=== PATIENT | male | born 1970 | race Caucasian/White ===

== ENCOUNTER 2017-01-26 10:54 | Emergency (ER) | payer SELFPAY ==
--- NOTE | ~2017-01-26 | ER ---
PATIENT'S NAME: JOHN DELGADO [facility] AGE: 46 Y [address] ROOM: [place] [address] LOCATION: [facility] ADMIT DATE: 01/26/2017 ER/Outpatient Report DISCHARGE DATE: 01/26/2017 FAMILY PHYSICIAN: PHYSICIAN, NO ATTENDING PHYSICIAN: David Genao TIME OF ARRIVAL: 1054. TIME OF EVALUATION: 1101. CHIEF COMPLAINT: Hernia. HISTORY OF PRESENT ILLNESS: The patient is a 46-year-old male, who presents to the Emergency Department today with a chief complaint of hernia. He reports that he has had a hernia for multiple years. He reports that 1 day prior to arrival, he was lifting couches and furniture for a friend and ever since, he has been having some pain where his hernia is. He is able to push this hernia back in. Denies any fevers or chills. No nausea or vomiting. No diarrhea or constipation. No urinary frequency, urgency, or painful urination. It is a sharp pain, currently mild in severity. PAST MEDICAL HISTORY: Depression and hernia. PAST SURGICAL HISTORY: Bilateral knees x3 total. SOCIAL HISTORY: The patient smoked a pack per day for 34 years. Denies any alcohol or illicit drug use. ALLERGIES: NO KNOWN DRUG ALLERGIES. MEDICATIONS: Risperdal. PRIMARY CARE DOCTOR: In [place]. REVIEW OF SYSTEMS: PATIENT'S NAME: JOHN DELGADO [facility] AGE: 46 Y [address] ROOM: [place] [address] LOCATION: [facility] ADMIT DATE: 01/26/2017 ER/Outpatient Report DISCHARGE DATE: 01/26/2017 FAMILY PHYSICIAN: PHYSICIAN, NO ATTENDING PHYSICIAN: David Genao All systems are reviewed by myself and are negative with the exception of those discussed in HPI and past medical history. PHYSICAL EXAMINATION: VITAL SIGNS: Weight 112 kg, blood pressure 141/101, pulse 83, respiratory rate 20, temperature 97.1, and oxygen saturation 96% on room air. GENERAL: The patient is a 46-year-old male, who appears stated age, in no acute distress at this time. HEENT: Normocephalic, atraumatic. NECK: Supple. There is no nuchal rigidity. CARDIOVASCULAR: Regular rate and rhythm. No murmurs, rubs, or gallops. LUNGS: Diminished diffusely. No wheezes, rales, or rhonchi. ABDOMEN: Soft. He does have a small reducible hernia palpated at the 10 o'clock position of his umbilicus. There is no rebound, rigidity, or guarding. Positive bowel sounds. MUSCULOSKELETAL: The patient moves all 4 extremities. Ambulates with steady gait. SKIN: Warm and dry. No rashes or lesions noted. LABORATORY DATA AND X-RAYS: None. IMPRESSION: 1. Abdominal wall periumbilical reducible hernia. 2. Initial visit. EMERGENCY DEPARTMENT COURSE: The patient brought back to the examination room. Seen and evaluated by myself. History and physical were performed as described above. I have discussed hernia with the patient and his girlfriend at the bedside. I have recommended followup with General surgery. We have given him a card for [facility] general surgeon, Dr. Callahan, who is on-call. He is to call to make an appointment to be seen in 5 to 7 days. I have discussed hernia and if it is unable to be reduced, he needs to return to the emergency department as soon as possible. The patient is agreeable. I have written a prescription for Naprosyn for home. I recommended support to the anterior abdominal wall as well as no heavy lifting. The patient is agreeable without further questions. DISPOSITION: The patient is discharged home in good condition. PATIENT'S NAME: JOHN DELGADO [facility] AGE: 46 Y [address] ROOM: [place], [place] [address] LOCATION: ED ADMIT DATE: 01/26/2017 ER/Outpatient Report DISCHARGE DATE: 01/26/2017 FAMILY PHYSICIAN: PHYSICIAN, NO ATTENDING PHYSICIAN: David Genao DO KJR/efra /[id number] d: 01/26/171945 t: 01/29/1759, OUTPATIENT REPORT
== END 2017-01-26 11:16 | disposition disaster alternative care site (69) ==
LOC: GMED 10:54
DX: K42.9 Umbilical hernia without obstruction or gangrene (principal); F17.210 Nicotine dependence, cigarettes, uncomplicated; F32.9 Major depressive disorder, single episode, unspecified; Z98.890 Other specified postprocedural states; Z79.899 Other long term (current) drug therapy